=== PATIENT | male | born 1990 | race Caucasian/White ===

== ENCOUNTER 2018-09-10 12:11 | Emergency (ER) | payer MEDICAID, OTHER ==
[~2018-09-10] VITALS: Ht 190.5 cm; Wt 90.9 kg
[~2018-09-10 12:11] MED LIST: ARIP15TA2 PO; DIVA-78 PO
[2018-09-10] MEDS ORDERED: CARBAMIDE PEROXIDE 6.5% 15 ML OTIC SOLUTION AU ONE (12:45)
[2018-09-10] MEDS ORDERED: ACETAMINOPHEN 500 MG TABLET PO ONE (12:45)
[2018-09-10] MEDS ORDERED: BENZOCAINE/MENTHOL LOZENGE PO ONE (12:45)
[2018-09-10 13:27] VITALS: BP 125/64
== END 2018-09-10 13:44 | disposition home or self-care (01) ==
LOC: EMS 12:12
DX: J02.9 Acute pharyngitis, unspecified (principal); H61.23 Impacted cerumen, bilateral; M54.2 Cervicalgia; F20.9 Schizophrenia, unspecified
CPT/HCPCS: 87430

== ENCOUNTER 2018-09-10 17:36 | Emergency (ER) | payer OTHER ==
[~2018-09-10] VITALS: Ht 190.5 cm; Wt 95.5 kg
[2018-09-10] MEDS: KETOROLAC TROMETHAMINE 30 MG/ML VIAL IM ONE (19:13)
[2018-09-10 20:11] VITALS: BP 121/78
== END 2018-09-10 20:29 | disposition home or self-care (01) ==
LOC: EMS 17:37
DX: J02.9 Acute pharyngitis, unspecified (principal); F20.9 Schizophrenia, unspecified
CPT/HCPCS: 96372; 99283; J1885

== ENCOUNTER 2018-09-11 23:04 | Emergency (ER) | payer OTHER ==
[~2018-09-11] VITALS: Ht 190.5 cm; Wt 95.5 kg
[2018-09-12] MEDS: IBUPROFEN 600 MG TABLET PO ONE (00:20)
[2018-09-12] MEDS: ACETAMINOPHEN 500 MG TABLET PO ONE (00:20)
[2018-09-12 01:19] VITALS: BP 132/86
[2018-09-12] MEDS: CEPHALEXIN MONOHYDRATE 500 MG CAPSULE PO ONE (01:34)
[2018-09-12] MEDS: LIDOCAINE/PF 1% 2 ML VIAL IM ONE (01:34)
[2018-09-12] MEDS: CefTRIAXone SODIUM 1 GM/VIAL IM ONE (01:35)
== END 2018-09-12 01:45 | disposition home or self-care (01) ==
LOC: EMS 23:05
DX: J02.9 Acute pharyngitis, unspecified (principal); M54.2 Cervicalgia; F20.9 Schizophrenia, unspecified
CPT/HCPCS: 96372; 99284; J0696; J3490

== ENCOUNTER 2018-10-08 17:33 | Inpatient (IN) | payer MEDICAID ==
[~2018-10-08] VITALS: Ht 188 cm; Wt 89.1 kg
[2018-10-08] MEDS ORDERED: ZOLPIDEM TARTRATE 10 MG TABLET PO PRN (18:15)
[2018-10-08] MEDS ORDERED: HALOPERIDOL 5 MG TABLET PO PRN (18:15)
[2018-10-08] MEDS ORDERED: LORazepam 2 MG TABLET PO PRN (18:15)
[2018-10-08 18:20] VITALS: BP 132/77
[2018-10-08 18:32] VITALS: BP 142/90
[2018-10-08] MEDS ORDERED: CloNIDine HCL 0.1 MG TABLET PO PRN (18:45)
[2018-10-08] MEDS ORDERED: NICOTINE 14 MG/24 HOUR PATCH TD PRN (18:45)
[2018-10-08] MEDS ORDERED: IBUPROFEN 400 MG TABLET PO PRN (18:45)
[2018-10-08] MEDS ORDERED: MAGNESIUM HYDROXIDE SUSPENSION 30 ML UDCUP PO PRN (18:45)
[2018-10-08] MEDS ORDERED: MAG HYDROX/AL HYDROX/SIMETH ES 30 ML SUSPENSION UDCUP PO PRN (18:45)
[2018-10-08] MEDS ORDERED: ACETAMINOPHEN 325 MG TABLET PO PRN (18:45)
[2018-10-08] MEDS ORDERED: LOPERAMIDE HCL 2 MG CAPSULE PO PRN (18:45)
[2018-10-08] MEDS ORDERED: GuaiFENesin/D-METHORPHAN [SUGAR-FREE] 200-20MG/10 ML SYRUP UDCUP PO PRN (18:45)
[2018-10-08] MEDS ORDERED: PETROLATUM,WHITE 71 GM JELLY TP PRN (18:45)
[2018-10-08] MEDS ORDERED: ONDANSETRON HCL 4 MG TABLET PO PRN (18:45)
[2018-10-08] MEDS ORDERED: DOCUSATE SODIUM 100 MG CAPSULE PO PRN (18:45)
[2018-10-08] MEDS ORDERED: ALBUTEROL SULFATE HFA 90 MCG/PUFF 8 GM INHALER IH PRN (18:45)
[2018-10-09 06:21] VITALS: BP 130/84
[2018-10-09 08:46] LABS: EOSINOPHILS % (AUTO) 5.2 % (1.0-6.0); HEMATOCRIT 41.9 % (41-53); HEMOGLOBIN 14.4 g/dL (13.5-17.5); LYMPHOCYTES % (AUTO) 37.5 % (22.0-44.0); MEAN CORPUSCULAR HEMOGLOBIN 29.6 pg (26.0-34.0); MEAN CORPUSCULAR HGB CONC 34.4 G/dL (31.0-37.0); MEAN CORPUSCULAR VOLUME 86 fL (80-100); MONOCYTES # (AUTO) 0.3 K/uL (0.1-1.0); NEUTROPHILS # (AUTO) 2.7 K/uL (1.8-7.7); NEUTROPHILS % (AUTO) 50.3 % (40.0-70.0); PLATELET COUNT (AUTO) 267 K/uL (150-450); RED BLOOD CELL COUNT(AUTO) 4.86 MIL/uL (4.50-5.90); RED CELL DISTRIBUTION WIDTH 13.6 % (11.5-14.5)
[2018-10-09 09:06] LABS: HEMOGLOBIN A1C 5.8 % (4.5-6.2)
[2018-10-09 09:10] VITALS: BP 135/78
[2018-10-09 09:28] LABS: ALANINE AMINOTRANSFERASE 47 U/L (12-78); ALBUMIN 4.1 g/dL (3.4-5.0); ALKALINE PHOSPHATASE 68 U/L (46-116); ANION GAP 9 mmol/L (8-16); ASPARTATE AMINOTRANSFERASE 24 U/L (15-37); BILIRUBIN,TOTAL 0.6 mg/dL (0.1-1.0); CALCIUM, TOTAL 9.7 mg/dL (8.8-10.5); CARBON DIOXIDE 29 mmol/L (22-29); CHLORIDE 102 mmol/L (98-107); CHOL/HDL RATIO 3.6 (4.2-7.3); CHOLESTEROL 215 mg/dL (131-200); CREATININE 1.03 mg/dL (0.60-1.30); FREE T4 (FREE THYROXINE) 0.88 ng/dL (0.76-1.46); GLOMERULAR FILTR. RATE CALC > 60 mL/min (>60); GLUCOSE,RANDOM 84 mg/dL (70-110); HDL CHOLESTEROL 60 mg/dL (40-60); LDL CHOL (CALC.) 135 mg/dL (0-130); SODIUM SERUM 140 mmol/L (136-145); THYROID STIMULATING HORMONE 1.78 uIU/mL (0.36-3.74); TOTAL PROTEIN, SERUM 9.1 g/dL (6.4-8.2); TRIGLYCERIDES 102 mg/dL (15-150); UREA NITROGEN, BLOOD 10 mg/dL (7-18)
[2018-10-09] MEDS: DIVALPROEX SODIUM 500 MG ER TABLET PO SCH ×2 (11:44→16:52)
[2018-10-09 16:00] VITALS: BP 105/71
[2018-10-10 03:53] VITALS: BP 109/62
[2018-10-10 08:16] VITALS: BP 109/65
[2018-10-10] MEDS: DIVALPROEX SODIUM 500 MG ER TABLET PO SCH ×2 (08:54→16:53)
[2018-10-10 17:31] VITALS: BP 112/67
[2018-10-11 06:15] VITALS: BP 114/71
[2018-10-11 08:12] VITALS: BP 110/66
[2018-10-11] MEDS: DIVALPROEX SODIUM 500 MG ER TABLET PO SCH ×2 (08:48→16:43)
[2018-10-11 16:00] VITALS: BP 109/75
[2018-10-12 06:41] VITALS: BP 115/73
[2018-10-12 08:08] VITALS: BP 110/71
[2018-10-12] MEDS: DIVALPROEX SODIUM 500 MG ER TABLET PO SCH (09:07)
== END 2018-10-12 13:20 | disposition home or self-care (01) | DRG 750 ==
LOC: B3A 18:17
PROVIDERS: ADMIT Psychiatry & Neurology Psychiatry; ATTEND Psychiatry & Neurology Psychiatry
DX: F25.0 Schizoaffective disorder, bipolar type (principal); R45.851 Suicidal ideations; E78.5 Hyperlipidemia, unspecified; F32.9 Major depressive disorder, single episode, unspecified; G47.00 Insomnia, unspecified; F41.9 Anxiety disorder, unspecified; K21.9 Gastro-esophageal reflux disease without esophagitis; Z81.8 Family history of other mental and behavioral disorders
CPT/HCPCS: 83036; 84439; 84443

== ENCOUNTER 2019-02-17 08:18 | Inpatient (IN) | payer MEDICAID, OTHER ==
[~2019-02-17] VITALS: Ht 190.5 cm; Wt 98.6 kg
[~2019-02-17 08:18] MED LIST changes: -ARIP15TA2 PO; +OLAN5TAB2 PO
[2019-02-17 09:35] LABS: BASOPHILS % (AUTO) 0.8 % (0.0-2.0); EOSINOPHILS % (AUTO) 4.5 % (1.0-6.0); HEMATOCRIT 41.4 % (41-53); HEMOGLOBIN 13.8 g/dL (13.5-17.5); LYMPHOCYTES # (AUTO) 2.1 K/uL (1.0-4.8); LYMPHOCYTES % (AUTO) 29.2 % (22.0-44.0); MEAN CORPUSCULAR HEMOGLOBIN 29.1 pg (26.0-34.0); MEAN CORPUSCULAR HGB CONC 33.4 G/dL (31.0-37.0); MEAN CORPUSCULAR VOLUME 87 fL (80-100); MONOCYTES # (AUTO) 0.6 K/uL (0.1-1.0); MONOCYTES % (AUTO) 8.1 % (2.0-9.0); NEUTROPHILS # (AUTO) 4.1 K/uL (1.8-7.7); NEUTROPHILS % (AUTO) 57.4 % (40.0-70.0); PLATELET COUNT (AUTO) 278 K/uL (150-450); RED BLOOD CELL COUNT(AUTO) 4.75 MIL/uL (4.50-5.90); RED CELL DISTRIBUTION WIDTH 13.2 % (11.5-14.5)
[2019-02-17 09:36] LABS: AMPHET/METH SCREEN,URINE NEGATIVE (NEGATIVE); BARBITURATE SCREEN, URINE NEGATIVE (NEGATIVE); BENZODIAZEPINES SCREEN,URINE NEGATIVE (NEGATIVE); CANNABINOID SCREEN,URINE NEGATIVE (NEGATIVE); COCAINE SCREEN,URINE NEGATIVE (NEGATIVE); METHADONE SCREEN, URINE NEGATIVE (NEGATIVE); OPIATE SCREEN,URINE NEGATIVE (NEGATIVE)
[2019-02-17 09:39] LABS: PHENCYCLIDINE SCREEN,URINE NEGATIVE (NEGATIVE)
[2019-02-17 09:43] LABS: ANION GAP 10 mmol/L (8-16); CALCIUM, TOTAL 9.2 mg/dL (8.8-10.5); CARBON DIOXIDE 27 mmol/L (22-29); CHLORIDE 102 mmol/L (98-107); CREATININE 0.85 mg/dL (0.60-1.30); GLOMERULAR FILTR. RATE CALC > 60 mL/min (>60); GLUCOSE,RANDOM 104 mg/dL (70-110); POTASSIUM 3.9 mmol/L (3.5-5.1); SODIUM SERUM 139 mmol/L (136-145); UREA NITROGEN, BLOOD 12 mg/dL (7-18)
[2019-02-17 09:49] LABS: ALANINE AMINOTRANSFERASE 33 U/L (12-78); ALBUMIN 4.1 g/dL (3.4-5.0); ALKALINE PHOSPHATASE 70 U/L (46-116); ASPARTATE AMINOTRANSFERASE 35 U/L (15-37); BILIRUBIN,TOTAL 0.4 mg/dL (0.1-1.0); TOTAL PROTEIN, SERUM 7.5 g/dL (6.4-8.2)
[2019-02-17] MEDS ORDERED: LORazepam 2 MG TABLET PO ONE (12:45)
[2019-02-17] MEDS ORDERED: OLANZapine 5 MG RAPDIS TABLET PO ONE (12:45)
[2019-02-17] MEDS ORDERED: ZOLPIDEM TARTRATE 10 MG TABLET PO PRN (13:00)
[2019-02-17] MEDS ORDERED: OLANZapine 5 MG RAPDIS TABLET PO PRN (13:00)
[2019-02-17 19:16] VITALS: BP 129/89
[2019-02-17] MEDS ORDERED: DOCUSATE SODIUM 100 MG CAPSULE PO PRN (19:45)
[2019-02-17] MEDS ORDERED: GuaiFENesin/D-METHORPHAN [SUGAR-FREE] 200-20MG/10 ML SYRUP UDCUP PO PRN (19:45)
[2019-02-17] MEDS ORDERED: MAG HYDROX/AL HYDROX/SIMETH ES 30 ML SUSPENSION UDCUP PO PRN (19:45)
[2019-02-17] MEDS ORDERED: ONDANSETRON HCL 4 MG TABLET PO PRN (19:45)
[2019-02-17] MEDS ORDERED: MAGNESIUM HYDROXIDE SUSPENSION 30 ML UDCUP PO PRN (19:45)
[2019-02-17] MEDS ORDERED: NICOTINE 14 MG/24 HOUR PATCH TD PRN (19:45)
[2019-02-17] MEDS ORDERED: PETROLATUM,WHITE 28 GM JELLY TP PRN (19:45)
[2019-02-17] MEDS ORDERED: ALBUTEROL SULFATE HFA 90 MCG/PUFF 8 GM INHALER IH PRN (19:45)
[2019-02-17] MEDS ORDERED: ACETAMINOPHEN 325 MG TABLET PO PRN (19:45)
[2019-02-17] MEDS ORDERED: CloNIDine HCL 0.1 MG TABLET PO PRN (19:45)
[2019-02-17] MEDS ORDERED: IBUPROFEN 400 MG TABLET PO PRN (19:45)
[2019-02-17] MEDS ORDERED: LOPERAMIDE HCL 2 MG CAPSULE PO PRN (19:45)
[2019-02-18 00:25] VITALS: BP 121/68
[2019-02-18 07:33] LABS: CHOL/HDL RATIO 3.3 (4.2-7.3); FREE T4 (FREE THYROXINE) 1.06 ng/dL (0.76-1.46); THYROID STIMULATING HORMONE 1.93 uIU/mL (0.36-3.74)
[2019-02-18] MEDS: LORazepam 2 MG TABLET PO PRN ×2 (08:04→17:19)
[2019-02-18 08:30] VITALS: BP 116/82
[2019-02-18] MEDS: DIVALPROEX SODIUM 500 MG DR TABLET PO SCH ×2 (11:19→21:06)
[2019-02-18] MEDS: OLANZapine 5 MG TABLET PO SCH ×2 (11:19→21:06)
[2019-02-18 17:06] VITALS: BP 108/60
[2019-02-18 18:23] VITALS: BP 125/86
[2019-02-19 00:02] VITALS: BP 120/81
[2019-02-19] MEDS: LORazepam 2 MG TABLET PO PRN ×3 (04:17→20:34)
[2019-02-19 09:00] VITALS: BP 126/87
[2019-02-19] MEDS: DIVALPROEX SODIUM 500 MG DR TABLET PO SCH ×2 (10:42→20:33)
[2019-02-19] MEDS: OLANZapine 5 MG TABLET PO SCH ×2 (10:42→20:33)
[2019-02-19 16:55] VITALS: BP 123/87
[2019-02-20 00:34] VITALS: BP 119/95
[2019-02-20] MEDS: DIVALPROEX SODIUM 500 MG DR TABLET PO SCH (09:16)
[2019-02-20] MEDS: OLANZapine 5 MG TABLET PO SCH (09:16)
[2019-02-20 09:24] VITALS: BP 126/92
== END 2019-02-20 11:00 | disposition home or self-care (01) | DRG 750 ==
LOC: EMS 08:19 → B2S 18:20
DX: F25.1 Schizoaffective disorder, depressive type (principal); R45.851 Suicidal ideations; Z91.14 Patient's other noncompliance with medication regimen; E78.5 Hyperlipidemia, unspecified; G44.209 Tension-type headache, unspecified, not intractable; Z81.8 Family history of other mental and behavioral disorders; Z91.5 Personal history of self-harm; F41.9 Anxiety disorder, unspecified; G47.00 Insomnia, unspecified
CPT/HCPCS: 84439; 84443; G0480

== ENCOUNTER 2019-03-17 03:19 | Emergency (ER) | payer MEDICAID, OTHER ==
[~2019-03-17] VITALS: Ht 182.9 cm; Wt 104.5 kg
[2019-03-17 04:43] LABS: EOSINOPHILS % (AUTO) 1.5 % (1.0-6.0); HEMATOCRIT 43.9 % (41-53); HEMOGLOBIN 14.6 g/dL (13.5-17.5); LYMPHOCYTES # (AUTO) 1.6 K/uL (1.0-4.8); LYMPHOCYTES % (AUTO) 19.6 % (22.0-44.0); MEAN CORPUSCULAR HGB CONC 33.2 G/dL (31.0-37.0); MEAN CORPUSCULAR VOLUME 87 fL (80-100); MONOCYTES # (AUTO) 0.5 K/uL (0.1-1.0); MONOCYTES % (AUTO) 6.2 % (2.0-9.0); NEUTROPHILS # (AUTO) 5.7 K/uL (1.8-7.7); NEUTROPHILS % (AUTO) 71.7 % (40.0-70.0); PLATELET COUNT (AUTO) 280 K/uL (150-450); RED BLOOD CELL COUNT(AUTO) 5.03 MIL/uL (4.50-5.90); RED CELL DISTRIBUTION WIDTH 13.5 % (11.5-14.5)
[2019-03-17] MEDS ORDERED: RISP0.252 PO (04:49)
[2019-03-17 04:50] LABS: ANION GAP 10 mmol/L (8-16); CARBON DIOXIDE 28 mmol/L (22-29); CHLORIDE 104 mmol/L (98-107); CREATININE 1.04 mg/dL (0.60-1.30); GLOMERULAR FILTR. RATE CALC > 60 mL/min (>60); GLUCOSE,RANDOM 102 mg/dL (70-110); POTASSIUM 4.1 mmol/L (3.5-5.1); SODIUM SERUM 142 mmol/L (136-145); UREA NITROGEN, BLOOD 15 mg/dL (7-18)
[2019-03-17 04:56] LABS: ALANINE AMINOTRANSFERASE 35 U/L (12-78); ALBUMIN 4.3 g/dL (3.4-5.0); ALKALINE PHOSPHATASE 71 U/L (46-116); ASPARTATE AMINOTRANSFERASE 29 U/L (15-37); BILIRUBIN,TOTAL 0.6 mg/dL (0.1-1.0); TOTAL PROTEIN, SERUM 8.1 g/dL (6.4-8.2)
[2019-03-17 05:00] LABS: AMPHET/METH SCREEN,URINE NEGATIVE (NEGATIVE); BARBITURATE SCREEN, URINE NEGATIVE (NEGATIVE); BENZODIAZEPINES SCREEN,URINE NEGATIVE (NEGATIVE); CANNABINOID SCREEN,URINE NEGATIVE (NEGATIVE); COCAINE SCREEN,URINE NEGATIVE (NEGATIVE); METHADONE SCREEN, URINE NEGATIVE (NEGATIVE); OPIATE SCREEN,URINE NEGATIVE (NEGATIVE)
[2019-03-17 05:01] LABS: PHENCYCLIDINE SCREEN,URINE NEGATIVE (NEGATIVE)
[2019-03-17 09:59] VITALS: BP 130/81
== END 2019-03-17 10:10 | disposition home or self-care (01) ==
LOC: EMS 03:24
DX: F20.9 Schizophrenia, unspecified (principal); Z79.899 Other long term (current) drug therapy
CPT/HCPCS: 36415; 80053; 80307; 85025; 99285; G0480

== ENCOUNTER 2019-06-22 12:09 | Emergency (ER) | payer OTHER ==
[~2019-06-22] VITALS: Ht 190.5 cm; Wt 100.0 kg
[~2019-06-22 12:09] MED LIST changes: +RISP0.252 PO
[2019-06-22 13:10] VITALS: BP 129/84
== END 2019-06-22 13:13 | disposition home or self-care (01) ==
LOC: EMS 12:10
DX: F41.9 Anxiety disorder, unspecified (principal); F20.9 Schizophrenia, unspecified; Z79.899 Other long term (current) drug therapy

== ENCOUNTER 2019-07-14 02:40 | Inpatient (IN) | payer MEDICAID, OTHER ==
[~2019-07-14] VITALS: Ht 188 cm; Wt 110.2 kg
[2019-07-14] MEDS ORDERED: OLANZapine 5 MG RAPDIS TABLET PO PRN (03:30)
[2019-07-14] MEDS ORDERED: ZOLPIDEM TARTRATE 10 MG TABLET PO PRN (03:30)
[2019-07-14 05:00] VITALS: BP 138/93
[2019-07-14] MEDS: LORazepam 2 MG TABLET PO PRN (06:33)
[2019-07-14 08:31] VITALS: BP 135/86
[2019-07-14] MEDS ORDERED: PALI156D IM (09:20)
[2019-07-14 16:21] VITALS: BP 139/88
[2019-07-15 02:57] VITALS: BP 136/90
[2019-07-15 08:05] VITALS: BP 128/77
[2019-07-15 08:33] LABS: APPEARANCE,URINE CLEAR (CLEAR); BILIRUBIN,URINE NEGATIVE (NEGATIVE); GLUCOSE, URINE (UA) NEGATIVE (NEGATIVE); KETONES,URINE NEGATIVE (NEGATIVE); LEUKOCYTE ESTERASE ,URINE NEGATIVE (NEGATIVE); NITRATE,URINE NEGATIVE (NEGATIVE); OCCULT BLOOD,URINE NEGATIVE (NEGATIVE); PROTEIN,URINE NEGATIVE (NEGATIVE); UROBILINOGEN,URINE 0.2 mg/dL (<=1.0)
[2019-07-15 08:38] LABS: AMPHET/METH SCREEN,URINE NEGATIVE (NEGATIVE); BARBITURATE SCREEN, URINE NEGATIVE (NEGATIVE); BENZODIAZEPINES SCREEN,URINE NEGATIVE (NEGATIVE); CANNABINOID SCREEN,URINE NEGATIVE (NEGATIVE); COCAINE SCREEN,URINE NEGATIVE (NEGATIVE); METHADONE SCREEN, URINE NEGATIVE (NEGATIVE); OPIATE SCREEN,URINE NEGATIVE (NEGATIVE)
[2019-07-15 08:40] LABS: PHENCYCLIDINE SCREEN,URINE NEGATIVE (NEGATIVE)
[2019-07-15 08:44] LABS: HEMOGLOBIN A1C 5.2 % (4.5-6.2)
[2019-07-15 09:14] LABS: ALANINE AMINOTRANSFERASE 31 U/L (12-78); ALBUMIN 4.5 g/dL (3.4-5.0); ALKALINE PHOSPHATASE 77 U/L (46-116); ANION GAP 10 mmol/L (8-16); ASPARTATE AMINOTRANSFERASE 23 U/L (15-37); BILIRUBIN,TOTAL 0.5 mg/dL (0.1-1.0); CALCIUM, TOTAL 10.2 mg/dL (8.8-10.5); CARBON DIOXIDE 27 mmol/L (22-29); CHLORIDE 102 mmol/L (98-107); CHOL/HDL RATIO 5.5 (4.2-7.3); CHOLESTEROL 215 mg/dL (131-200); CREATININE 1.14 mg/dL (0.60-1.30); GLOMERULAR FILTR. RATE CALC > 60 mL/min (>60); GLUCOSE,RANDOM 89 mg/dL (70-110); HDL CHOLESTEROL 39 mg/dL (40-60); LDL CHOL (CALC.) 126 mg/dL (0-130); POTASSIUM 3.6 mmol/L (3.5-5.1); SODIUM SERUM 139 mmol/L (136-145); THYROID STIMULATING HORMONE 1.79 uIU/mL (0.36-3.74); TOTAL PROTEIN, SERUM 8.6 g/dL (6.4-8.2); TRIGLYCERIDES 248 mg/dL (15-150); UREA NITROGEN, BLOOD 14 mg/dL (7-18)
[2019-07-15 16:30] VITALS: BP 135/78
[2019-07-15] MEDS: LORazepam 2 MG TABLET PO PRN (17:09)
[2019-07-16 06:28] VITALS: BP 124/82
[2019-07-16] MEDS ORDERED: GuaiFENesin/D-METHORPHAN [SUGAR-FREE] 200-20MG/10 ML SYRUP UDCUP PO PRN (16:45)
[2019-07-16] MEDS ORDERED: MAG HYDROX/AL HYDROX/SIMETH ES 30 ML SUSPENSION UDCUP PO PRN (16:45)
[2019-07-16] MEDS ORDERED: IBUPROFEN 400 MG TABLET PO PRN (16:45)
[2019-07-16] MEDS ORDERED: ACETAMINOPHEN 325 MG TABLET PO PRN (16:45)
[2019-07-16] MEDS ORDERED: ALBUTEROL SULFATE HFA 90 MCG/PUFF 8 GM INHALER IH PRN (16:45)
[2019-07-16] MEDS ORDERED: ONDANSETRON HCL 4 MG TABLET PO PRN (16:45)
[2019-07-16] MEDS ORDERED: DOCUSATE SODIUM 100 MG CAPSULE PO PRN (16:45)
[2019-07-16] MEDS ORDERED: NICOTINE 14 MG/24 HOUR PATCH TD PRN (16:45)
[2019-07-16] MEDS ORDERED: CloNIDine HCL 0.1 MG TABLET PO PRN (16:45)
[2019-07-16] MEDS ORDERED: MAGNESIUM HYDROXIDE SUSPENSION 30 ML UDCUP PO PRN (16:45)
[2019-07-16] MEDS ORDERED: LOPERAMIDE HCL 2 MG CAPSULE PO PRN (16:45)
[2019-07-16] MEDS ORDERED: PETROLATUM,WHITE 28 GM JELLY TP PRN (16:45)
[2019-07-16 16:49] VITALS: BP 132/75
[2019-07-16] MEDS ORDERED: RISP.5 PO (16:50)
[2019-07-17 11:06] VITALS: BP 114/67
== END 2019-07-17 13:30 | disposition home or self-care (01) | DRG 750 ==
LOC: B3A 02:45
PROVIDERS: ADMIT Psychiatry & Neurology Psychiatry; ATTEND Psychiatry & Neurology Psychiatry
DX: F20.9 Schizophrenia, unspecified (principal); Z91.19 Patient's noncompliance with other medical treatment and regimen; E78.5 Hyperlipidemia, unspecified; G44.209 Tension-type headache, unspecified, not intractable; F41.9 Anxiety disorder, unspecified; G47.00 Insomnia, unspecified
CPT/HCPCS: 80307; 83036; 84443

== ENCOUNTER 2019-09-26 10:22 | Inpatient (IN) | payer MEDICAID ==
[~2019-09-26] VITALS: Ht 190.5 cm; Wt 107.6 kg
[~2019-09-26 10:22] MED LIST changes: -DIVA-78 PO; +HALOPERIDOL DECANOATE 100 MG/ML VIAL IM SCH; -OLAN5TAB2 PO; -RISP0.252 PO
[2019-09-26 11:28] VITALS: BP 118/70
[2019-09-26] MEDS ORDERED: PALI156D IM (11:32)
[2019-09-26] MEDS ORDERED: HALO100V4 IM (11:39)
[2019-09-26] MEDS ORDERED: ZOLPIDEM TARTRATE 10 MG TABLET PO PRN (11:45)
[2019-09-26] MEDS ORDERED: HALOPERIDOL 5 MG TABLET PO PRN (11:45)
[2019-09-26] MEDS ORDERED: LORazepam 2 MG TABLET PO PRN (11:45)
[2019-09-26] MEDS ORDERED: INFLUENZA VIRUS VACCINE QVS 2019-20 (3YR+)/PF 60 MCG/0.5 ML SYRINGE IM ONE (12:15)
[2019-09-26 16:10] VITALS: BP 139/91
[2019-09-27 02:40] VITALS: BP 127/82
[2019-09-27 08:01] LABS: BASOPHILS % (AUTO) 0.7 % (0.0-2.0); EOSINOPHILS % (AUTO) 2.6 % (1.0-6.0); HEMATOCRIT 44.4 % (41-53); LYMPHOCYTES # (AUTO) 1.6 K/uL (1.0-4.8); LYMPHOCYTES % (AUTO) 23.6 % (22.0-44.0); MEAN CORPUSCULAR HEMOGLOBIN 29.5 pg (26.0-34.0); MEAN CORPUSCULAR HGB CONC 33.8 G/dL (31.0-37.0); MEAN CORPUSCULAR VOLUME 87 fL (80-100); MONOCYTES # (AUTO) 0.4 K/uL (0.1-1.0); MONOCYTES % (AUTO) 6.3 % (2.0-9.0); NEUTROPHILS # (AUTO) 4.7 K/uL (1.8-7.7); NEUTROPHILS % (AUTO) 66.8 % (40.0-70.0); PLATELET COUNT (AUTO) 298 K/uL (150-450); RED BLOOD CELL COUNT(AUTO) 5.09 MIL/uL (4.50-5.90); RED CELL DISTRIBUTION WIDTH 13.4 % (11.5-14.5)
[2019-09-27 08:07] VITALS: BP 127/80
[2019-09-27 08:20] LABS: APPEARANCE,URINE CLEAR (CLEAR); BILIRUBIN,URINE NEGATIVE (NEGATIVE); GLUCOSE, URINE (UA) NEGATIVE (NEGATIVE); KETONES,URINE NEGATIVE (NEGATIVE); LEUKOCYTE ESTERASE ,URINE NEGATIVE (NEGATIVE); NITRATE,URINE NEGATIVE (NEGATIVE); OCCULT BLOOD,URINE NEGATIVE (NEGATIVE); PROTEIN,URINE NEGATIVE (NEGATIVE)
[2019-09-27 08:25] LABS: AMPHET/METH SCREEN,URINE NEGATIVE (NEGATIVE); BARBITURATE SCREEN, URINE NEGATIVE (NEGATIVE); BENZODIAZEPINES SCREEN,URINE NEGATIVE (NEGATIVE); CANNABINOID SCREEN,URINE NEGATIVE (NEGATIVE); COCAINE SCREEN,URINE NEGATIVE (NEGATIVE); METHADONE SCREEN, URINE NEGATIVE (NEGATIVE); OPIATE SCREEN,URINE NEGATIVE (NEGATIVE)
[2019-09-27 08:26] LABS: PHENCYCLIDINE SCREEN,URINE NEGATIVE (NEGATIVE)
[2019-09-27 08:29] LABS: HEMOGLOBIN A1C 5.4 % (4.5-6.2)
[2019-09-27 08:34] LABS: ALANINE AMINOTRANSFERASE 30 U/L (12-78); ALBUMIN 4.2 g/dL (3.4-5.0); ALKALINE PHOSPHATASE 83 U/L (46-116); ANION GAP 6 mmol/L (8-16); ASPARTATE AMINOTRANSFERASE 17 U/L (15-37); BILIRUBIN,TOTAL 0.4 mg/dL (0.1-1.0); CALCIUM, TOTAL 9.1 mg/dL (8.8-10.5); CARBON DIOXIDE 30 mmol/L (22-29); CHLORIDE 102 mmol/L (98-107); CHOL/HDL RATIO 4.1 (4.2-7.3); CHOLESTEROL 176 mg/dL (131-200); CREATININE 1.06 mg/dL (0.60-1.30); FREE T4 (FREE THYROXINE) 1.07 ng/dL (0.76-1.46); GLOMERULAR FILTR. RATE CALC > 60 mL/min (>60); GLUCOSE,RANDOM 102 mg/dL (70-110); HDL CHOLESTEROL 43 mg/dL (40-60); LDL CHOL (CALC.) 113 mg/dL (0-130); SODIUM SERUM 138 mmol/L (136-145); THYROID STIMULATING HORMONE 3.19 uIU/mL (0.36-3.74); TRIGLYCERIDES 101 mg/dL (15-150); UREA NITROGEN, BLOOD 5 mg/dL (7-18)
[2019-09-27 16:02] VITALS: BP 140/94
[2019-09-27] MEDS ORDERED: BACITRACIN 28.4 GM OINTMENT TP PRN (21:45)
[2019-09-27] MEDS ORDERED: ACETAMINOPHEN 325 MG TABLET PO PRN (21:45)
[2019-09-27] MEDS ORDERED: ONDANSETRON HCL 4 MG TABLET PO PRN (21:45)
[2019-09-27] MEDS ORDERED: PETROLATUM,WHITE 28 GM JELLY TP PRN (21:45)
[2019-09-27] MEDS ORDERED: BENZOCAINE/MENTHOL LOZENGE MM PRN (21:45)
[2019-09-27] MEDS ORDERED: LOPERAMIDE HCL 2 MG CAPSULE PO PRN (21:45)
[2019-09-27] MEDS ORDERED: MAG HYDROX/AL HYDROX/SIMETH ES 30 ML SUSPENSION UDCUP PO PRN (21:45)
[2019-09-27] MEDS ORDERED: DOCUSATE SODIUM 100 MG CAPSULE PO PRN (21:45)
[2019-09-27] MEDS ORDERED: ALBUTEROL SULFATE HFA 90 MCG/PUFF 8 GM INHALER IH PRN (21:45)
[2019-09-27] MEDS ORDERED: CloNIDine HCL 0.1 MG TABLET PO PRN (21:45)
[2019-09-27] MEDS ORDERED: OMEPRAZOLE 20 MG CAPSULE PO PRN (21:45)
[2019-09-27] MEDS ORDERED: IBUPROFEN 600 MG TABLET PO PRN (21:45)
[2019-09-27] MEDS ORDERED: MAGNESIUM HYDROXIDE SUSPENSION 30 ML UDCUP PO PRN (21:45)
[2019-09-28 00:18] VITALS: BP 116/72
[2019-09-28 08:14] VITALS: BP 120/71
[2019-09-28] MEDS ORDERED: HALO100V4 IM (13:28)
[2019-09-28 16:06] VITALS: BP 121/84
== END 2019-09-28 17:50 | disposition home or self-care (01) | DRG 750 ==
LOC: B2S 11:49
PROVIDERS: ADMIT Psychiatry & Neurology Psychiatry; ATTEND Psychiatry & Neurology Psychiatry
DX: F20.0 Paranoid schizophrenia (principal); R45.851 Suicidal ideations; F41.9 Anxiety disorder, unspecified; K59.00 Constipation, unspecified; Z28.21 Immunization not carried out because of patient refusal; G47.00 Insomnia, unspecified; S40.922A Unspecified superficial injury of left upper arm, initial encounter; S40.921A Unspecified superficial injury of right upper arm, initial encounter; X58.XXXA Exposure to other specified factors, initial encounter; Y93.89 Activity, other specified; Y92.89 Other specified places as the place of occurrence of the external cause; Y99.8 Other external cause status
CPT/HCPCS: 80307; 83036; 84439; 84443; J1631

== ENCOUNTER 2020-01-11 12:32 | Inpatient (IN) | payer MEDICAID ==
[~2020-01-11] VITALS: Ht 188 cm; Wt 106.4 kg
[~2020-01-11 12:32] MED LIST changes: +FLUO-191 PO; +HALO50VI4 IM; -HALOPERIDOL DECANOATE 100 MG/ML VIAL IM SCH
[2020-01-11 15:25] VITALS: BP 131/85
[2020-01-11] MEDS ORDERED: LORazepam 2 MG TABLET PO PRN (16:15)
[2020-01-11] MEDS ORDERED: ZOLPIDEM TARTRATE 10 MG TABLET PO PRN (16:15)
[2020-01-11 20:03] VITALS: BP 129/87
[2020-01-12 06:50] VITALS: BP 116/78
[2020-01-12 08:28] LABS: BASOPHILS % (AUTO) 0.7 % (0.0-2.0); EOSINOPHILS % (AUTO) 3.8 % (1.0-6.0); HEMATOCRIT 43.3 % (41-53); HEMOGLOBIN 14.6 g/dL (13.5-17.5); LYMPHOCYTES # (AUTO) 2.8 K/uL (1.0-4.8); LYMPHOCYTES % (AUTO) 40.2 % (22.0-44.0); MEAN CORPUSCULAR HEMOGLOBIN 29.3 pg (26.0-34.0); MEAN CORPUSCULAR HGB CONC 33.8 G/dL (31.0-37.0); MEAN CORPUSCULAR VOLUME 87 fL (80-100); MONOCYTES # (AUTO) 0.6 K/uL (0.1-1.0); NEUTROPHILS # (AUTO) 3.4 K/uL (1.8-7.7); NEUTROPHILS % (AUTO) 47.3 % (40.0-70.0); PLATELET COUNT (AUTO) 308 K/uL (150-450); RED BLOOD CELL COUNT(AUTO) 4.99 MIL/uL (4.50-5.90); RED CELL DISTRIBUTION WIDTH 13.8 % (11.5-14.5)
[2020-01-12 08:31] VITALS: BP 114/71
[2020-01-12 08:49] LABS: ALANINE AMINOTRANSFERASE 33 U/L (12-78); ALBUMIN 4.3 g/dL (3.4-5.0); ALKALINE PHOSPHATASE 69 U/L (46-116); ANION GAP 6 mmol/L (8-16); ASPARTATE AMINOTRANSFERASE 18 U/L (15-37); BILIRUBIN,TOTAL 0.5 mg/dL (0.1-1.0); CALCIUM, TOTAL 9.7 mg/dL (8.8-10.5); CARBON DIOXIDE 29 mmol/L (22-29); CHLORIDE 104 mmol/L (98-107); CREATININE 1.02 mg/dL (0.60-1.30); GLOMERULAR FILTR. RATE CALC > 60 mL/min (>60); GLUCOSE,RANDOM 84 mg/dL (70-110); POTASSIUM 3.8 mmol/L (3.5-5.1); SODIUM SERUM 139 mmol/L (136-145); TOTAL PROTEIN, SERUM 7.7 g/dL (6.4-8.2); UREA NITROGEN, BLOOD 12 mg/dL (7-18)
[2020-01-12] MEDS: FLUoxetine HCL 20 MG CAPSULE PO SCH (12:24)
[2020-01-12] MEDS ORDERED: PETROLATUM,WHITE 28 GM JELLY TP PRN (14:00)
[2020-01-12] MEDS ORDERED: DOCUSATE SODIUM 100 MG CAPSULE PO PRN (14:00)
[2020-01-12] MEDS ORDERED: CloNIDine HCL 0.1 MG TABLET PO PRN (14:00)
[2020-01-12] MEDS ORDERED: GuaiFENesin/D-METHORPHAN [SUGAR-FREE] 200-20MG/10 ML SYRUP UDCUP PO PRN (14:00)
[2020-01-12] MEDS ORDERED: LOPERAMIDE HCL 2 MG CAPSULE PO PRN (14:00)
[2020-01-12] MEDS ORDERED: ALBUTEROL SULFATE HFA 90 MCG/PUFF 8 GM INHALER IH PRN (14:00)
[2020-01-12] MEDS ORDERED: ACETAMINOPHEN 325 MG TABLET PO PRN (14:00)
[2020-01-12] MEDS ORDERED: NICOTINE 14 MG/24 HOUR PATCH TD PRN (14:00)
[2020-01-12] MEDS ORDERED: IBUPROFEN 400 MG TABLET PO PRN (14:00)
[2020-01-12] MEDS ORDERED: MAGNESIUM HYDROXIDE SUSPENSION 30 ML UDCUP PO PRN (14:00)
[2020-01-12] MEDS ORDERED: MAG HYDROX/AL HYDROX/SIMETH ES 30 ML SUSPENSION UDCUP PO PRN (14:00)
[2020-01-12] MEDS ORDERED: ONDANSETRON HCL 4 MG TABLET PO PRN (14:00)
[2020-01-12 20:09] VITALS: BP 131/75
[2020-01-13 06:17] LABS: THYROID STIMULATING HORMONE 1.51 uIU/mL (0.36-3.74)
[2020-01-13 06:39] VITALS: BP 101/73
[2020-01-13 08:00] VITALS: BP 121/79
[2020-01-13] MEDS: FLUoxetine HCL 20 MG CAPSULE PO SCH (08:36)
[2020-01-13 16:08] VITALS: BP 120/68
[2020-01-14 05:59] VITALS: BP 112/66
[2020-01-14 08:25] VITALS: BP 129/82
[2020-01-14] MEDS: FLUoxetine HCL 20 MG CAPSULE PO SCH (08:26)
[2020-01-14 16:09] VITALS: BP 115/75
[2020-01-15 01:26] VITALS: BP 113/76
[2020-01-15 08:02] VITALS: BP 111/62
[2020-01-15] MEDS: FLUoxetine HCL 20 MG CAPSULE PO SCH (08:17)
[2020-01-15 16:04] VITALS: BP 111/65
[2020-01-16 05:22] VITALS: BP 109/66
[2020-01-16 08:12] LABS: CHOL/HDL RATIO 6.4 (4.2-7.3)
[2020-01-16 08:18] VITALS: BP 124/72
[2020-01-16] MEDS: FLUoxetine HCL 20 MG CAPSULE PO SCH (08:24)
[2020-01-16] MEDS ORDERED: FLUO-191 PO ×4 (14:54→16:34)
[2020-01-16] MEDS ORDERED: HALO50VI4 IM (15:28)
[2020-01-16 16:05] VITALS: BP 116/72
[2020-01-24] MEDS ORDERED: HALOPERIDOL DECANOATE 50 MG/ML VIAL IM SCH (09:00)
== END 2020-01-16 20:22 | disposition home or self-care (01) | DRG 750 ==
LOC: B2S 16:22
DX: F25.1 Schizoaffective disorder, depressive type (principal); R45.851 Suicidal ideations; F41.9 Anxiety disorder, unspecified; K21.9 Gastro-esophageal reflux disease without esophagitis; Z79.899 Other long term (current) drug therapy; Z91.5 Personal history of self-harm
CPT/HCPCS: 84443

== ENCOUNTER 2020-01-31 20:41 | Inpatient (IN) | payer MEDICAID ==
[~2020-01-31] VITALS: Ht 188 cm; Wt 107.5 kg
[2020-01-31] MEDS ORDERED: ZOLPIDEM TARTRATE 10 MG TABLET PO PRN (21:00)
[2020-01-31] MEDS ORDERED: HALOPERIDOL 5 MG TABLET PO PRN (21:00)
[2020-01-31] MEDS ORDERED: LORazepam 2 MG TABLET PO PRN (21:00)
[2020-01-31 21:04] VITALS: BP 129/86
[2020-01-31 22:18] VITALS: BP 135/90
[2020-02-01 00:15] VITALS: BP 117/69
[2020-02-01 07:53] LABS: BASOPHILS % (AUTO) 0.7 % (0.0-2.0); EOSINOPHILS % (AUTO) 3.2 % (1.0-6.0); HEMATOCRIT 42.1 % (41-53); HEMOGLOBIN 14.3 g/dL (13.5-17.5); LYMPHOCYTES # (AUTO) 2.5 K/uL (1.0-4.8); LYMPHOCYTES % (AUTO) 32.8 % (22.0-44.0); MEAN CORPUSCULAR HEMOGLOBIN 29.2 pg (26.0-34.0); MEAN CORPUSCULAR HGB CONC 33.9 G/dL (31.0-37.0); MEAN CORPUSCULAR VOLUME 86 fL (80-100); MONOCYTES # (AUTO) 0.5 K/uL (0.1-1.0); MONOCYTES % (AUTO) 7.1 % (2.0-9.0); NEUTROPHILS # (AUTO) 4.2 K/uL (1.8-7.7); NEUTROPHILS % (AUTO) 56.2 % (40.0-70.0); PLATELET COUNT (AUTO) 274 K/uL (150-450); RED BLOOD CELL COUNT(AUTO) 4.87 MIL/uL (4.50-5.90); RED CELL DISTRIBUTION WIDTH 13.4 % (11.5-14.5)
[2020-02-01 08:22] LABS: ALANINE AMINOTRANSFERASE 32 U/L (12-78); ALKALINE PHOSPHATASE 62 U/L (46-116); ANION GAP 10 mmol/L (8-16); ASPARTATE AMINOTRANSFERASE 16 U/L (15-37); BILIRUBIN,TOTAL 0.3 mg/dL (0.1-1.0); CALCIUM, TOTAL 9.2 mg/dL (8.8-10.5); CARBON DIOXIDE 26 mmol/L (22-29); CHLORIDE 103 mmol/L (98-107); CHOL/HDL RATIO 6.8 (4.2-7.3); CHOLESTEROL 197 mg/dL (131-200); CREATININE 0.93 mg/dL (0.60-1.30); FREE T4 (FREE THYROXINE) 1.12 ng/dL (0.76-1.46); GLOMERULAR FILTR. RATE CALC > 60 mL/min (>60); GLUCOSE,RANDOM 94 mg/dL (70-110); HDL CHOLESTEROL 29 mg/dL (40-60); HEMOGLOBIN A1C 5.4 % (3.8-5.6); LDL CHOL (CALC.) 90 mg/dL (0-130); POTASSIUM 3.4 mmol/L (3.5-5.1); SODIUM SERUM 139 mmol/L (136-145); THYROID STIMULATING HORMONE 3.34 uIU/mL (0.36-3.74); TOTAL PROTEIN, SERUM 7.7 g/dL (6.4-8.2); TRIGLYCERIDES 390 mg/dL (15-150); UREA NITROGEN, BLOOD 9 mg/dL (7-18)
[2020-02-01 08:32] VITALS: BP 109/66
[2020-02-01] MEDS ORDERED: NICOTINE 14 MG/24 HOUR PATCH TD PRN (12:00)
[2020-02-01] MEDS ORDERED: CloNIDine HCL 0.1 MG TABLET PO PRN (12:00)
[2020-02-01] MEDS ORDERED: MAGNESIUM HYDROXIDE SUSPENSION 30 ML UDCUP PO PRN (12:00)
[2020-02-01] MEDS ORDERED: LOPERAMIDE HCL 2 MG CAPSULE PO PRN (12:00)
[2020-02-01] MEDS ORDERED: IBUPROFEN 400 MG TABLET PO PRN (12:00)
[2020-02-01] MEDS ORDERED: DOCUSATE SODIUM 100 MG CAPSULE PO PRN (12:00)
[2020-02-01] MEDS ORDERED: GuaiFENesin/D-METHORPHAN [SUGAR-FREE] 200-20MG/10 ML SYRUP UDCUP PO PRN (12:00)
[2020-02-01] MEDS ORDERED: ONDANSETRON HCL 4 MG TABLET PO PRN (12:00)
[2020-02-01] MEDS ORDERED: ACETAMINOPHEN 325 MG TABLET PO PRN (12:00)
[2020-02-01] MEDS ORDERED: PETROLATUM,WHITE 28 GM JELLY TP PRN (12:00)
[2020-02-01] MEDS ORDERED: ALBUTEROL SULFATE HFA 90 MCG/PUFF 8 GM INHALER IH PRN (12:00)
[2020-02-01] MEDS ORDERED: MAG HYDROX/AL HYDROX/SIMETH ES 30 ML SUSPENSION UDCUP PO PRN (12:00)
[2020-02-01] MEDS: FLUoxetine HCL 20 MG CAPSULE PO SCH (12:30)
[2020-02-01 16:26] VITALS: BP 104/65
[2020-02-01] MEDS ORDERED: POTASSIUM CHLORIDE 20 MEQ ER TABLET PO ONE (16:45)
[2020-02-02 05:29] VITALS: BP 102/60
[2020-02-02 07:55] VITALS: BP 105/57
[2020-02-02 08:17] VITALS: BP 105/57
[2020-02-02] MEDS: FLUoxetine HCL 20 MG CAPSULE PO SCH (08:25)
[2020-02-02 16:01] VITALS: BP 110/67
[2020-02-03 07:00] VITALS: BP 96/47
[2020-02-03 08:00] VITALS: BP 122/78
[2020-02-03] MEDS: FLUoxetine HCL 20 MG CAPSULE PO SCH (08:20)
[2020-02-03 16:01] VITALS: BP 129/60
[2020-02-04 02:29] VITALS: BP 134/77
[2020-02-04] MEDS: FLUoxetine HCL 20 MG CAPSULE PO SCH (08:27)
[2020-02-04 10:00] VITALS: BP 131/87
[2020-02-04 16:07] VITALS: BP 140/69
[2020-02-05 05:31] VITALS: BP 132/78
[2020-02-05 08:13] VITALS: BP 124/52
[2020-02-05] MEDS: FLUoxetine HCL 20 MG CAPSULE PO SCH (08:14)
[2020-02-05 16:16] VITALS: BP 110/62
[2020-02-06 05:37] VITALS: BP 116/70
[2020-02-06] MEDS: FLUoxetine HCL 20 MG CAPSULE PO SCH (08:05)
[2020-02-06 08:11] VITALS: BP 104/60
[2020-02-06 16:00] VITALS: BP 106/58
[2020-02-07 01:03] VITALS: BP 111/63
[2020-02-07 08:08] VITALS: BP 117/58
[2020-02-07] MEDS ORDERED: OMEGA-3/DHA/EPA/FISH OIL 1,000 MG CAPSULE PO SCH (09:00)
[2020-02-07] MEDS: FLUoxetine HCL 20 MG CAPSULE PO SCH (09:07)
[2020-02-07] MEDS ORDERED: FLUO-191 PO (09:27)
[2020-02-07] MEDS ORDERED: HALO50AM2 IM (09:29)
== END 2020-02-07 13:00 | disposition home or self-care (01) | DRG 750 ==
LOC: B2S 20:55
DX: F25.1 Schizoaffective disorder, depressive type (principal); R45.851 Suicidal ideations; F41.9 Anxiety disorder, unspecified; K21.9 Gastro-esophageal reflux disease without esophagitis; E87.6 Hypokalemia; E78.5 Hyperlipidemia, unspecified; Z79.899 Other long term (current) drug therapy; Z91.5 Personal history of self-harm
CPT/HCPCS: 83036; 84132; 84439; 84443; 87081

== ENCOUNTER 2020-04-21 15:20 | Inpatient (IN) | payer MEDICAID, OTHER ==
[~2020-04-21] VITALS: Ht 190.5 cm; Wt 101.9 kg
[~2020-04-21 15:20] MED LIST changes: +HALO50AM2 IM; -HALO50VI4 IM
[2020-04-21 18:04] LABS: BASOPHILS % (AUTO) 0.3 % (0.0-2.0); EOSINOPHILS % (AUTO) 1.1 % (1.0-6.0); HEMATOCRIT 45.1 % (41-53); HEMOGLOBIN 14.6 g/dL (13.5-17.5); LYMPHOCYTES # (AUTO) 2.5 K/uL (1.0-4.8); LYMPHOCYTES % (AUTO) 24.4 % (22.0-44.0); MEAN CORPUSCULAR HEMOGLOBIN 28.3 pg (26.0-34.0); MEAN CORPUSCULAR HGB CONC 32.3 G/dL (31.0-37.0); MEAN CORPUSCULAR VOLUME 88 fL (80-100); MONOCYTES # (AUTO) 0.8 K/uL (0.1-1.0); MONOCYTES % (AUTO) 7.8 % (2.0-9.0); NEUTROPHILS # (AUTO) 6.9 K/uL (1.8-7.7); NEUTROPHILS % (AUTO) 66.4 % (40.0-70.0); PLATELET COUNT (AUTO) 333 K/uL (150-450); RED BLOOD CELL COUNT(AUTO) 5.15 MIL/uL (4.50-5.90); RED CELL DISTRIBUTION WIDTH 13.3 % (11.5-14.5)
[2020-04-21 18:22] LABS: ANION GAP 11 mmol/L (8-16); CALCIUM, TOTAL 9.1 mg/dL (8.8-10.5); CARBON DIOXIDE 27 mmol/L (22-29); CHLORIDE 105 mmol/L (98-107); CREATININE 0.99 mg/dL (0.60-1.30); GLOMERULAR FILTR. RATE CALC > 60 mL/min (>60); GLUCOSE,RANDOM 102 mg/dL (70-110); POTASSIUM 3.5 mmol/L (3.5-5.1); SODIUM SERUM 143 mmol/L (136-145); UREA NITROGEN, BLOOD 12 mg/dL (7-18)
[2020-04-21 18:28] LABS: ALANINE AMINOTRANSFERASE 35 U/L (12-78); ALBUMIN 4.6 g/dL (3.4-5.0); ALKALINE PHOSPHATASE 71 U/L (46-116); ASPARTATE AMINOTRANSFERASE 27 U/L (15-37); BILIRUBIN,TOTAL 0.5 mg/dL (0.1-1.0); TOTAL PROTEIN, SERUM 8.8 g/dL (6.4-8.2)
[2020-04-21 19:01] LABS: AMPHET/METH SCREEN,URINE NEGATIVE (NEGATIVE); BARBITURATE SCREEN, URINE NEGATIVE (NEGATIVE); BENZODIAZEPINES SCREEN,URINE NEGATIVE (NEGATIVE); CANNABINOID SCREEN,URINE NEGATIVE (NEGATIVE); COCAINE SCREEN,URINE NEGATIVE (NEGATIVE); METHADONE SCREEN, URINE NEGATIVE (NEGATIVE); OPIATE SCREEN,URINE NEGATIVE (NEGATIVE)
[2020-04-21 19:08] LABS: PHENCYCLIDINE SCREEN,URINE NEGATIVE (NEGATIVE)
[2020-04-21] MEDS ORDERED: ZOLPIDEM TARTRATE 10 MG TABLET PO PRN ×2 (20:15→20:45)
[2020-04-21] MEDS ORDERED: LORazepam 2 MG TABLET PO PRN ×2 (20:15→20:45)
[2020-04-21] MEDS ORDERED: QUEtiapine FUMARATE 100 MG TABLET PO PRN (20:15)
[2020-04-21] MEDS ORDERED: GuaiFENesin/D-METHORPHAN [SUGAR-FREE] 200-20MG/10 ML SYRUP UDCUP PO PRN (20:45)
[2020-04-21] MEDS ORDERED: HydrOXYzine PAMOATE 50 MG CAPSULE PO PRN (20:45)
[2020-04-21] MEDS ORDERED: MAGNESIUM HYDROXIDE SUSPENSION 30 ML UDCUP PO PRN (20:45)
[2020-04-21] MEDS ORDERED: LOPERAMIDE HCL 2 MG CAPSULE PO PRN (20:45)
[2020-04-21] MEDS ORDERED: PROMETHAZINE HCL 25 MG TABLET PO PRN (20:45)
[2020-04-21] MEDS ORDERED: ACETAMINOPHEN 325 MG TABLET PO PRN (20:45)
[2020-04-21] MEDS ORDERED: PALIPERIDONE 1.5 MG ER TABLET PO PRN (20:45)
[2020-04-21] MEDS ORDERED: TUBERCULIN, PURIFIED PROTEIN DERIVATIVE 5 TU/0.1 ML SYRINGE ID ONE (20:45)
[2020-04-21] MEDS ORDERED: MAG HYDROX/AL HYDROX/SIMETH ES 30 ML SUSPENSION UDCUP PO PRN (20:45)
[2020-04-21] MEDS ORDERED: PALIPERIDONE 3 MG ER TABLET PO SCH (21:00)
[2020-04-21] MEDS: DIVALPROEX SODIUM 500 MG ER TABLET PO SCH (21:54)
[2020-04-21] MEDS: THIAMINE 100 MG TABLET PO SCH (21:54)
[2020-04-21 21:57] VITALS: BP 136/80
[2020-04-22 07:36] LABS: CHOL/HDL RATIO 3.3 (4.2-7.3); FREE T4 (FREE THYROXINE) 1.36 ng/dL (0.76-1.46); THYROID STIMULATING HORMONE 1.9 uIU/mL (0.36-3.74)
[2020-04-22 07:40] LABS: HEMOGLOBIN A1C 5.1 % (3.8-5.6)
[2020-04-22] MEDS: MULTIVITAMINS WITH MINERALS, THERAPEUTIC TABLET PO SCH (08:49)
[2020-04-22] MEDS: FOLIC ACID 1 MG TABLET PO SCH (08:49)
[2020-04-22] MEDS: NALTREXONE HCL 50 MG TABLET PO SCH (08:50)
[2020-04-22] MEDS: THIAMINE 100 MG TABLET PO SCH ×2 (08:51→16:42)
[2020-04-22] MEDS ORDERED: PALIPERIDONE PALMITATE 234 MG/1.5 ML SYRINGE IM ONE (09:00)
[2020-04-22 11:04] VITALS: BP 138/91
[2020-04-22 17:35] VITALS: BP 120/74
[2020-04-22] MEDS: DIVALPROEX SODIUM 500 MG ER TABLET PO SCH (20:09)
[2020-04-22] MEDS ORDERED: OLANZapine 5 MG RAPDIS TABLET PO PRN (21:15)
[2020-04-23 08:00] VITALS: BP 109/76
[2020-04-23] MEDS: MULTIVITAMINS WITH MINERALS, THERAPEUTIC TABLET PO SCH (08:39)
[2020-04-23] MEDS: NALTREXONE HCL 50 MG TABLET PO SCH (08:39)
[2020-04-23] MEDS: THIAMINE 100 MG TABLET PO SCH ×2 (08:40→16:20)
[2020-04-23] MEDS: PROPRANOLOL HCL 10 MG TABLET PO SCH ×3 (08:42→16:20)
[2020-04-23] MEDS: FOLIC ACID 1 MG TABLET PO SCH (08:47)
[2020-04-23 16:28] VITALS: BP 140/103
[2020-04-23 16:50] VITALS: BP 136/97
[2020-04-23] MEDS: DIVALPROEX SODIUM 500 MG ER TABLET PO SCH (20:30)
[2020-04-23] MEDS: OLANZapine 5 MG RAPDIS TABLET PO SCH (20:43)
[2020-04-23] MEDS ORDERED: OLANZapine 10 MG RAPDIS TABLET PO SCH (21:00)
[2020-04-24 08:48] VITALS: BP 124/76
[2020-04-24] MEDS: MULTIVITAMINS WITH MINERALS, THERAPEUTIC TABLET PO SCH (08:55)
[2020-04-24] MEDS: PROPRANOLOL HCL 10 MG TABLET PO SCH ×3 (08:55→16:20)
[2020-04-24] MEDS: FOLIC ACID 1 MG TABLET PO SCH (08:55)
[2020-04-24] MEDS: NALTREXONE HCL 50 MG TABLET PO SCH (08:55)
[2020-04-24] MEDS: THIAMINE 100 MG TABLET PO SCH ×2 (08:56→16:20)
[2020-04-24 16:00] VITALS: BP 134/86
[2020-04-24] MEDS: OLANZapine 5 MG RAPDIS TABLET PO SCH (20:25)
[2020-04-24] MEDS: DIVALPROEX SODIUM 500 MG ER TABLET PO SCH (20:25)
[2020-04-25 01:51] VITALS: BP 129/81
[2020-04-25] MEDS: PROPRANOLOL HCL 10 MG TABLET PO SCH ×3 (08:52→16:30)
[2020-04-25] MEDS: NALTREXONE HCL 50 MG TABLET PO SCH (08:52)
[2020-04-25] MEDS: THIAMINE 100 MG TABLET PO SCH ×2 (08:52→16:30)
[2020-04-25] MEDS: MULTIVITAMINS WITH MINERALS, THERAPEUTIC TABLET PO SCH (08:52)
[2020-04-25] MEDS: FOLIC ACID 1 MG TABLET PO SCH (08:52)
[2020-04-25 09:07] VITALS: BP 134/86
[2020-04-25 16:17] VITALS: BP 124/74
[2020-04-25] MEDS: OLANZapine 5 MG RAPDIS TABLET PO SCH (20:41)
[2020-04-25] MEDS: DIVALPROEX SODIUM 500 MG ER TABLET PO SCH (20:41)
[2020-04-26 08:00] VITALS: BP 124/79
[2020-04-26] MEDS ORDERED: PALIPERIDONE PALMITATE 156 MG/ML SYRINGE IM ONE (09:00)
[2020-04-26] MEDS: FOLIC ACID 1 MG TABLET PO SCH (09:02)
[2020-04-26] MEDS: MULTIVITAMINS WITH MINERALS, THERAPEUTIC TABLET PO SCH (09:02)
[2020-04-26] MEDS: THIAMINE 100 MG TABLET PO SCH ×2 (09:02→16:05)
[2020-04-26] MEDS: NALTREXONE HCL 50 MG TABLET PO SCH (09:02)
[2020-04-26] MEDS: PROPRANOLOL HCL 10 MG TABLET PO SCH ×3 (09:03→16:04)
[2020-04-26 12:42] VITALS: BP 122/66
[2020-04-26 17:04] VITALS: BP 111/78
[2020-04-26] MEDS: OLANZapine 5 MG RAPDIS TABLET PO SCH (20:43)
[2020-04-26] MEDS: DIVALPROEX SODIUM 500 MG ER TABLET PO SCH (20:53)
[2020-04-26] MEDS: VALPROIC ACID 250 MG/5 ML SYRUP UDCUP PO SCH (22:05)
[2020-04-27 08:03] VITALS: BP 116/70
[2020-04-27] MEDS: THIAMINE 100 MG TABLET PO SCH ×2 (08:14→15:58)
[2020-04-27] MEDS: FOLIC ACID 1 MG TABLET PO SCH (08:14)
[2020-04-27] MEDS: MULTIVITAMINS WITH MINERALS, THERAPEUTIC TABLET PO SCH (08:14)
[2020-04-27] MEDS: NALTREXONE HCL 50 MG TABLET PO SCH (08:14)
[2020-04-27] MEDS: PROPRANOLOL HCL 10 MG TABLET PO SCH ×3 (08:14→15:58)
[2020-04-27 16:25] VITALS: BP 118/81
[2020-04-27] MEDS: OLANZapine 5 MG RAPDIS TABLET PO SCH (20:07)
[2020-04-27] MEDS: VALPROIC ACID 250 MG/5 ML SYRUP UDCUP PO SCH (20:07)
[2020-04-28] MEDS: THIAMINE 100 MG TABLET PO SCH ×2 (09:14→17:03)
[2020-04-28] MEDS: PROPRANOLOL HCL 10 MG TABLET PO SCH ×3 (09:14→17:03)
[2020-04-28] MEDS: NALTREXONE HCL 50 MG TABLET PO SCH (09:14)
[2020-04-28] MEDS: MULTIVITAMINS WITH MINERALS, THERAPEUTIC TABLET PO SCH (09:15)
[2020-04-28] MEDS: FOLIC ACID 1 MG TABLET PO SCH (09:15)
[2020-04-28 09:51] VITALS: BP 126/85
[2020-04-28 12:35] VITALS: BP 133/90
[2020-04-28 16:00] VITALS: BP 129/90
[2020-04-28 17:43] VITALS: BP 129/90
[2020-04-28] MEDS: OLANZapine 5 MG RAPDIS TABLET PO SCH (20:49)
[2020-04-28] MEDS: VALPROIC ACID 250 MG/5 ML SYRUP UDCUP PO SCH (20:49)
[2020-04-29 08:11] VITALS: BP 117/70
[2020-04-29] MEDS: THIAMINE 100 MG TABLET PO SCH ×2 (08:31→16:41)
[2020-04-29] MEDS: MULTIVITAMINS WITH MINERALS, THERAPEUTIC TABLET PO SCH (08:31)
[2020-04-29] MEDS: NALTREXONE HCL 50 MG TABLET PO SCH (08:31)
[2020-04-29] MEDS: FOLIC ACID 1 MG TABLET PO SCH (08:31)
[2020-04-29 16:38] VITALS: BP 114/82
[2020-04-29] MEDS: VALPROIC ACID 250 MG/5 ML SYRUP UDCUP PO SCH (20:35)
[2020-04-29] MEDS: OLANZapine 5 MG RAPDIS TABLET PO SCH (20:37)
[2020-04-30] MEDS: NALTREXONE HCL 50 MG TABLET PO SCH (08:44)
[2020-04-30] MEDS: FOLIC ACID 1 MG TABLET PO SCH (08:45)
[2020-04-30] MEDS: MULTIVITAMINS WITH MINERALS, THERAPEUTIC TABLET PO SCH (08:45)
[2020-04-30] MEDS: THIAMINE 100 MG TABLET PO SCH ×2 (08:45→16:28)
[2020-04-30 09:36] VITALS: BP 121/70
[2020-04-30 16:17] VITALS: BP 134/82
[2020-04-30] MEDS: DIVALPROEX SODIUM 500 MG ER TABLET PO SCH (20:38)
[2020-04-30] MEDS: OLANZapine 10 MG RAPDIS TABLET PO SCH (20:39)
[2020-05-01] MEDS: THIAMINE 100 MG TABLET PO SCH (09:04)
[2020-05-01] MEDS: NALTREXONE HCL 50 MG TABLET PO SCH (09:05)
[2020-05-01] MEDS: MULTIVITAMINS WITH MINERALS, THERAPEUTIC TABLET PO SCH (09:05)
[2020-05-01] MEDS: FOLIC ACID 1 MG TABLET PO SCH (09:05)
[2020-05-01 09:10] VITALS: BP 125/86
[2020-05-01] MEDS ORDERED: NALT50TA PO (10:48)
[2020-05-01] MEDS ORDERED: DIVA-80 PO (10:48)
[2020-05-01] MEDS ORDERED: OLAN10TA22 PO (10:48)
[2020-05-01 16:00] VITALS: BP 117/83
[2020-05-01] MEDS: OLANZapine 10 MG RAPDIS TABLET PO SCH (20:44)
[2020-05-01] MEDS: DIVALPROEX SODIUM 500 MG ER TABLET PO SCH (20:44)
[2020-05-02 08:13] VITALS: BP 131/85
[2020-05-02] MEDS: MULTIVITAMINS WITH MINERALS, THERAPEUTIC TABLET PO SCH (08:23)
[2020-05-02] MEDS: NALTREXONE HCL 50 MG TABLET PO SCH (08:23)
[2020-05-02] MEDS ORDERED: PALI117D IM (13:08)
== END 2020-05-02 18:00 | disposition home or self-care (01) | DRG 885 ==
LOC: EMS 15:20 → 3EC 20:00
PROVIDERS: ADMIT Psychiatry & Neurology Psychiatry; ATTEND Psychiatry & Neurology Psychiatry
DX: F20.0 Paranoid schizophrenia (principal); F17.200 Nicotine dependence, unspecified, uncomplicated; F60.0 Paranoid personality disorder; F41.9 Anxiety disorder, unspecified; Z91.19 Patient's noncompliance with other medical treatment and regimen; Z65.3 Problems related to other legal circumstances; Z91.5 Personal history of self-harm
CPT/HCPCS: 83036; 84439; 84443; 86592; G0480